=== PATIENT | male | born 1950 | race Caucasian/White ===

== ENCOUNTER 2016-04-19 09:09 | Inpatient (IN) | payer MEDICARE, OTHER ==
[~2016-04-19] VITALS: Ht 200.6 cm; Wt 157.1 kg
--- NOTE | ~2016-04-19 | PR ---
[place], [place] PROGRESS NOTE NAME: CHICA GAXIOLA UNIT #: [id number] ROOM: 427 DOCTOR: NISHA DOHERTY MD BIRTHDATE: [birth year] DOS: 04/24/2016 REASON FOR VISIT: Atrial fibrillation and recurrent falls. HISTORY OF PRESENT ILLNESS: The patient is feeling better. Denies any chest pain or shortness of breath. No palpitations, no dizziness. Edema is much better. No further syncopal attacks. He is anticipating discharge home today. REVIEW OF SYSTEMS: Review of the 8 systems negative except as mentioned above. RHYTHM STRIPS: Rhythm strips, the patient in sinus rhythm. PHYSICAL EXAMINATION: VITAL SIGNS: Blood pressure 145/52, pulse 76, respiratory rate 16. GENERAL: Alert, comfortable, in no acute distress. HEENT: Pupils are round and equal. No jaundice. Tongue was moist and pharynx was clear. NECK: Supple, no distended neck veins, no carotid bruit. Thyroid not palpable. CHEST: Symmetrical, nontender. LUNGS: Few scattered rhonchi. Good air entry bilaterally. HEART: Regular rhythm, no S3, no palpable thrills. ABDOMEN: Obese, nontender. Bowel sounds normal. EXTREMITIES: Showed 1+ edema. Distal pulses are palpable. SKIN: Warm and dry. No cyanosis, no clubbing. NEUROLOGIC: The patient is alert, oriented. No focal neurologic deficit. DIAGNOSTIC TESTS: Review of the diagnostic test, his labs reviewed. Hemoglobin 8.7. IMPRESSION: 1. Recurrent falls, no evidence of significant bradycardia or tachycardia and blood pressure stable. 2. Paroxysmal atrial fibrillation. 3. Chronic anemia. 4. Hypertension. 5. Morbid obesity. 6. Diabetes, type 2. RECOMMENDATIONS: 1. Continue current medications. 2. He can be discharged home from the cardiac standpoint. We will arrange for outpatient 30-day event monitor. 3. Risk factor modification was discussed. 4. He will follow up visit with our Cardiology Clinic at the [facility]. [place], [place] PROGRESS NOTE NAME: MARIA ELENA GAXIOLAT UNIT #: [id number] ROOM: 427 DOCTOR: NISHA DOHETRY MD BIRTHDATE: [birth year] NISHA DOHERTY MD CM:MALENA [id number] NISHA DOHERTY MD 04/25/16 0720 interface
--- NOTE | ~2016-04-19 | PR ---
[place], [place] PROGRESS NOTE NAME: CHICA GAXIOLA UNIT #: [id number] ROOM: 427 DOCTOR: NISHA DOHERTY MD BIRTHDATE: [birth year] DOS: 04/22/2016 CARDIOLOGY FOLLOWUP VISIT NOTE REASON FOR VISIT: The patient with atrial fibrillation and syncope. HISTORY OF PRESENT ILLNESS: The patient is feeling better. Denies any chest pain. Breathing is much better, still has some edema. No dizziness, no palpitation, no PND, no orthopnea. He is lying in his bedside chair. No cough, no fever or chills. REVIEW OF SYSTEMS: Review of the 8 systems negative except as mentioned above. RHYTHM STRIPS: The patient with atrial fibrillation. PHYSICAL EXAMINATION: VITAL SIGNS: Blood pressure 162/62, pulse 66, respiratory rate 20. GENERAL: Alert, comfortable, in no acute distress. HEENT: Pupils are round and equal. No jaundice. NECK: Supple, no distended neck veins, no carotid bruit. CHEST: Nontender. LUNGS: Few rhonchi, slightly diminished at bases. HEART: Slightly irregular, grade 1/6 systolic murmur. ABDOMEN: Obese, nontender. EXTREMITIES: Showed 1-2+ edema. SKIN: Warm and dry. No cyanosis, no clubbing. REVIEW OF DIAGNOSTIC TEST: His hemoglobin is 8.7. BMP unremarkable. IMPRESSION: 1. Chronic atrial fibrillation. 2. Hypertension. 3. Syncope versus recurrent falls. 4. Anemia. 5. Morbid obesity. 6. Tobacco smoking. 7. Chronic obstructive pulmonary disease. RECOMMENDATIONS: 1. His current heart rates are stable, give one dose of Norvasc 5 mg today for his blood pressure. 2. Continue to monitor his heart rates and blood pressures, also his hemoglobins. 3. The blood pressure is persistently high, increase valsartan to 320 mg. 4. If he is stable, possibly he can be discharged home in the next 24-48 hours. 5. We will arrange for outpatient 30-day event monitor upon his discharge. [place], [place] PROGRESS NOTE NAME: LADYCHICA GOODE UNIT #: [id number] ROOM: 427 DOCTOR: NISHA DOHERTY MD BIRTHDATE: [birth year] NISHA DOHERTY MD CM:PNTRANS [id number] [phone] NISHA DOHERTY MD 04/23/165 interface
--- NOTE | ~2016-04-19 | PR ---
[place], [place] PROGRESS NOTE NAME: CHICA GAXIOLA UNIT #: [id number] ROOM: 427 DOCTOR: NISHA DOHERTY MD BIRTHDATE: [birth year] DOS: 04/23/2016 REASON FOR VISIT: Atrial fibrillation and frequent falls and CHF. HISTORY OF PRESENT ILLNESS: The patient is feeling better. Denies any dizziness or palpitations. No orthopnea. Edema is much better. No cough or fever. REVIEW OF SYSTEMS: Review of the 8 systems negative except as mentioned above. RHYTHM STRIPS: The patient was in sinus rhythm. PHYSICAL EXAMINATION: VITAL SIGNS: Blood pressure 138/62, pulse was 69, respiratory rate was 20. GENERAL: Alert, comfort, in no acute distress. He was sitting in the chair at bedside. HEENT: Pupils are round. No jaundice. Tongue was moist and pharynx was clear. NECK: Supple, no distended neck veins, no carotid bruit. CHEST: Symmetrical, nontender. LUNGS: Fair air entry bilaterally, diminished at the bases. ABDOMEN: Obese, nontender. Bowel sounds normal. EXTREMITIES: Showed trace to 1+ edema. Distal pulses are palpable. SKIN: Warm and dry. No cyanosis, no clubbing. NEUROLOGIC: The patient was alert, oriented. No focal neurologic deficit. RECTAL: Deferred. REVIEW OF THE DIAGNOSTIC TESTS: Labs reviewed as available. IMPRESSION: 1. Frequent falls, so far no significant vernell or tachycardia. 2. Paroxysmal atrial fibrillation. 3. Hypertension, stable. 4. Anemia. 5. Morbid obesity. 6. Diabetes. 7. Chronic diastolic heart failure. RECOMMENDATIONS: 1. Continue current medications. 2. He can be discharged home tomorrow. 3. We will arrange for outpatient 30-day event monitor at our office after discharge and also consider implantable loop recorder based on his symptoms. 4. Currently, there is no family at bedside. 5. Aggressive risk factor modification for diet, walking and weight loss discussed. [place], [place] PROGRESS NOTE NAME: CHICA GAXIOLA UNIT #: [id number] ROOM: 427 DOCTOR: NISHA DOHERTY MD BIRTHDATE: [birth year] NISHA DOHERTY MD CM:MALENA [id number] NISHA DOHERTY MD 04/24/1603 interface
[2016-04-19 09:09] VITALS: BP 150/50
[~2016-04-19 09:09] MED LIST: '''ZYRTEC PO; 'CLONIDINE0.1 MG PO; ACETAMINOPHEN-H1 TA2 PO; ADVAIR 250/501 EA INH; ALDACTONE25 M1 PO; ALPRAZOLAM0.5 M3 PO; AMLODIPINE BESYL5 MG PO; AMPICILLIN500 MG PO; ASPIR LOW81 MG PO; ASPIRIN CHEWABL81 MG PO; BREO ELLIPTA 11 EACH IH; BREO ELLIPTA 21 EACH IH; CARDIZEM CD240 M1 PO; CATAPRES-TTS 10.1 MG PO; CEFTRIAXON2 GM/50 ML IV; CEFUROXIME AXE250 MG PO; CLARITIN10 MG PO; CLONIDINE HYDR0.1 MG PO; CLONIDINE0.2 MG PO; CONSTULOSE10 GM/151 PO; COUMADIN4 M2 PO; COUMADIN5 M2 PO; COZAAR100 MG PO; DIOVAN160 M2 PO; DOXYCYCLINE100 M3 PO; DULCOLAX10 M1 RC; ELIQUIS5 M1 PO; ESOMEPRAZOLE MA40 M1 PO; FLEET ADULT ENEM1 EA R; FLEET ENEMA 13133 ML RC; FLEET ENEMA R; FLONASE ALLERG9.9 ML NAS; GABAPENTIN400 MG PO; GABAPENTIN800 MG PO; GLUTOSE 1515 GM PO; HUMALOG100 U/ML SC; HYDROCODONE BIT1 T11 PO; HYDROCODONE BIT1 T28 PO; INCRUSE EL62.5 MCG/A IH; INSULIN GLARGINE SC; INSULIN SYRING1 EAC1 MC; K-TAB20 MEQ PO; LACTULOSE10 GM/153 PO; LANTUS100 U/ML SC; LANTUS100 U/ML SQ; LASIX40 MG PO; LASIX80 MG PO; MACROBID100 M1 PO; MEDROL DOSEPAK4 MG PO; MELATONIN10 M2 PO; MICONAZOLE 72% TP; MILK OF MA400 MG/5 M PO; MILK OF MAGNESIA PO; MONTELUKAST SOD10 MG PO; MS CONTIN30 MG PO; NEXIUM40 MG PO; NORCO 7.5-3251 EACH PO; NOVOLOG10 ML SC; NYSTATIN60 GM TP; OMEPRAZOLE D/R20 MG PO; OPANA ER30 M1 PO; PERCOCET 325 MG1 TA6 PO; POTASSIUM CHLO20 ME3 PO; RANITIDINE HCL150 M1 PO; SINGULAIR10 M1 PO; SPIRIVA -- 3018 MCG INH; SPIRIVA18 MCG PO; SPIRONOLACTONE25 MG PO; TEST STRIPS1 EACH DIAG; THEO-24400 MG PO; THEOPHYLLINE400 MG PO; TOPROL XL50 M1 PO; TYLENOL325 M1 PO; VENTOLIN 02.5 MG/3 M INH; WARFARIN SODIUM6 MG PO; XANAX1 MG PO; [UNRECOGNIZED DRUG - OTHER] PO
[2016-04-19 09:54] LABS: BASO % 0.4 % (0.0-1.0); EOS # 0.2 10*3/uL (0.0-0.4); EOS % 2.9 % (1.0-4.0); HEMOGLOBIN 9.5 g/dl (14.0-18.0); IG # 0.1 10*3/uL (0.0-0.1); LYMPH # 0.8 10*3/uL (1.3-4.4); LYMPH % 10.1 % (27.0-41.0); MEAN CELL VOLUME 85.6 fl (80.0-94.0); MEAN CORPUSCULAR HGB 26.2 pg (27.0-31.0); MEAN CORPUSCULAR HGB CONC 30.6 g/dl (33.0-37.0); MEAN PLATELET VOLUME 10.6 fl (9.6-12.3); MONO # 0.6 10*3/uL (0.1-1.0); MONO % 7.3 % (3.0-9.0); NEUT # 5.9 10*3/uL (2.3-7.9); NEUT % 78.5 % (47.0-73.0); PLATELET COUNT AUTOMATED 317 10*3/uL (130-400); RED BLOOD COUNT 3.62 10*6/uL (4.50-5.90); RED CELL DISTRI WIDTH 17.9 % (0-14.5); WHITE BLOOD COUNT 7.6 10*3/uL (4.8-10.8)
[2016-04-19 10:00] VITALS: BP 148/60
[2016-04-19 10:03] LABS: INTERNATIONAL NORM RATIO 1.1 (2.0-3.5); PROTHROMBIN TIME 11.7 SECONDS (9.0-12.4)
[2016-04-19 10:14] LABS: ALBUMIN 2.6 gm/dl (3.1-4.5); ALKALINE PHOSPHATASE 157 U/L (45-117); BILIRUBIN, TOTAL 0.4 mg/dl (0.2-1.0); BUN 25 mg/dl (7-24); CARBON DIOXIDE 24 mmol/L (21-32); CHLORIDE 108 mmol/L (98-107); EST GLOM FILT AFRICAN AMERICAN > 60 ml/min; GLUCOSE 382 mg/dL (65-99); POTASSIUM 4.3 mmol/L (3.5-5.1); SGOT/AST 40 IU/L (3-35); SGPT/ALT 33 U/L (12-78); SODIUM 143 mmol/L (136-145); TOTAL PROTEIN 6.6 gm/dL (6.4-8.2)
[2016-04-19 10:23] LABS: TROPONIN I < 0.015 ng/ml (<0.5)
[2016-04-19 10:47] LABS: BILIRUBIN NEGATIVE (NEGATIVE); BLOOD NEGATIVE (NEGATIVE); CLARITY CLEAR (CLEAR); COLOR YELLOW (YELLOW); GLUCOSE 3+ (NEGATIVE); KETONE NEGATIVE (NEGATIVE); LEUKO ESTERASE NEGATIVE (NEGATIVE); NITRITE NEGATIVE (NEGATIVE); PH 5.5 (5.0-9.0); PROTEIN TRACE (NEGATIVE); UROBILINOGEN 0.2 E.U./dl (0.2-1.0)
[2016-04-19 11:00] LABS: BACTERIA 1+; URINE REFLEX COMMENT YES (NO); YEAST 1+
[2016-04-19 11:50] LABS: LA>2 REFLEX 2 HR DRAW NOW
[2016-04-19 12:34] VITALS: BP 144/62
[2016-04-19] MEDS ORDERED: AMITRIPTYLINE100 M1 PO (15:18)
[2016-04-19] MEDS ORDERED: NYSTOP100000 U/G T (15:18)
[2016-04-19] MEDS ORDERED: VALSARTAN160 MG PO (15:19)
[2016-04-19 16:00] VITALS: BP 163/70
[2016-04-19 18:56] LABS: CKMB 1.2 ng/ml (0.5-3.6); CPK 214 U/L (39-308)
[2016-04-19 19:04] LABS: TROPONIN I < 0.015 ng/ml (<0.5)
[2016-04-19 20:00] VITALS: BP 162/53
[2016-04-20] VITALS: BP 148/63
[2016-04-20 00:44] LABS: CKMB 1.2 ng/ml (0.5-3.6); TROPONIN I 0.019 ng/ml (<0.5)
[2016-04-20 06:34] LABS: BUN 14 mg/dl (7-24); CARBON DIOXIDE 29 mmol/L (21-32); CHLORIDE 106 mmol/L (98-107); EST GLOM FILT AFRICAN AMERICAN > 60 ml/min; GLUCOSE 321 mg/dL (65-99); MAGNESIUM 1.7 mg/dL (1.5-2.1); POTASSIUM 3.5 mmol/L (3.5-5.1); SODIUM 142 mmol/L (136-145)
[2016-04-20 06:38] LABS: BASO % 0.4 % (0.0-1.0); EOS # 0.2 10*3/uL (0.0-0.4); EOS % 4.8 % (1.0-4.0); HEMATOCRIT 28.7 % (42.0-52.0); HEMOGLOBIN 8.9 g/dl (14.0-18.0); LYMPH % 19.2 % (27.0-41.0); MEAN CELL VOLUME 84.9 fl (80.0-94.0); MEAN CORPUSCULAR HGB 26.3 pg (27.0-31.0); MEAN PLATELET VOLUME 10.9 fl (9.6-12.3); MONO # 0.4 10*3/uL (0.1-1.0); MONO % 8.1 % (3.0-9.0); NEUT # 3.3 10*3/uL (2.3-7.9); NEUT % 67.3 % (47.0-73.0); PLATELET COUNT AUTOMATED 259 10*3/uL (130-400); RED BLOOD COUNT 3.38 10*6/uL (4.50-5.90); RED CELL DISTRI WIDTH 17.6 % (0-14.5)
[2016-04-20 06:39] LABS: CPK 140 U/L (39-308)
[2016-04-20 06:44] LABS: TROPONIN I < 0.015 ng/ml (<0.5)
[2016-04-20 08:00] VITALS: BP 158/86; BP 170/90
[2016-04-20 12:00] VITALS: BP 143/93
[2016-04-20 16:00] VITALS: BP 132/96
[2016-04-20 20:00] VITALS: BP 101/53
[2016-04-21] VITALS: BP 128/50; BP 139/38
[2016-04-21 06:33] LABS: BASO % 0.4 % (0.0-1.0); EOS # 0.3 10*3/uL (0.0-0.4); EOS % 5.2 % (1.0-4.0); HEMATOCRIT 26.7 % (42.0-52.0); HEMOGLOBIN 8.4 g/dl (14.0-18.0); LYMPH % 19.7 % (27.0-41.0); MEAN CELL VOLUME 84.2 fl (80.0-94.0); MEAN CORPUSCULAR HGB 26.5 pg (27.0-31.0); MEAN CORPUSCULAR HGB CONC 31.5 g/dl (33.0-37.0); MEAN PLATELET VOLUME 10.9 fl (9.6-12.3); MONO # 0.5 10*3/uL (0.1-1.0); MONO % 9.4 % (3.0-9.0); NEUT # 3.4 10*3/uL (2.3-7.9); NEUT % 65.1 % (47.0-73.0); PLATELET COUNT AUTOMATED 251 10*3/uL (130-400); RED BLOOD COUNT 3.17 10*6/uL (4.50-5.90); RED CELL DISTRI WIDTH 17.4 % (0-14.5); WHITE BLOOD COUNT 5.2 10*3/uL (4.8-10.8)
[2016-04-21 08:00] VITALS: BP 136/64
[2016-04-21 11:17] LABS: URINE AMPHETAMINES < 1000 (1000ng/ml); URINE BARBITURATES < 200 (200ng/ml); URINE COCAINE < 300 (300ng/ml)
[2016-04-21 12:00] VITALS: BP 153/64
[2016-04-21 16:00] VITALS: BP 168/62
[2016-04-21 20:00] VITALS: BP 119/58
[2016-04-22] VITALS: BP 140/50
[2016-04-22 06:46] LABS: BASO % 0.6 % (0.0-1.0); EOS # 0.3 10*3/uL (0.0-0.4); EOS % 6.2 % (1.0-4.0); HEMATOCRIT 28.3 % (42.0-52.0); HEMOGLOBIN 8.7 g/dl (14.0-18.0); LYMPH % 20.1 % (27.0-41.0); MEAN CELL VOLUME 84.2 fl (80.0-94.0); MEAN CORPUSCULAR HGB 25.9 pg (27.0-31.0); MEAN CORPUSCULAR HGB CONC 30.7 g/dl (33.0-37.0); MEAN PLATELET VOLUME 10.5 fl (9.6-12.3); MONO # 0.5 10*3/uL (0.1-1.0); MONO % 9.3 % (3.0-9.0); NEUT # 3.3 10*3/uL (2.3-7.9); NEUT % 63.4 % (47.0-73.0); PLATELET COUNT AUTOMATED 272 10*3/uL (130-400); RED BLOOD COUNT 3.36 10*6/uL (4.50-5.90); RED CELL DISTRI WIDTH 17.2 % (0-14.5); WHITE BLOOD COUNT 5.2 10*3/uL (4.8-10.8)
[2016-04-22 07:02] LABS: BUN 10 mg/dl (7-24); CARBON DIOXIDE 30 mmol/L (21-32); CHLORIDE 104 mmol/L (98-107); EST GLOM FILT AFRICAN AMERICAN > 60 ml/min; GLUCOSE 140 mg/dL (65-99); POTASSIUM 3.6 mmol/L (3.5-5.1); SODIUM 142 mmol/L (136-145)
[2016-04-22 08:00] VITALS: BP 168/60
[2016-04-22 12:00] VITALS: BP 162/62
[2016-04-22 16:00] VITALS: BP 98/40
[2016-04-22 20:00] VITALS: BP 130/72
[2016-04-23] VITALS: BP 159/58
[2016-04-23 08:00] VITALS: BP 138/62
[2016-04-23 12:00] VITALS: BP 147/56
[2016-04-23 16:00] VITALS: BP 132/61
[2016-04-23 20:00] VITALS: BP 151/58
[2016-04-24] VITALS: BP 144/66
[2016-04-24 08:00] VITALS: BP 138/52
[2016-04-24 12:10] VITALS: BP 146/52
[2016-04-24] MEDS ORDERED: KLOR-CON 1010 ME1 PO (14:01)
[2016-04-24] MEDS ORDERED: BUMETANIDE1 MG PO (14:01)
[2016-04-24 16:00] VITALS: BP 133/93
[2016-04-24 20:00] VITALS: BP 156/56
[2016-04-25] VITALS: BP 144/58
[2016-04-25 08:00] VITALS: BP 156/51
== END 2016-04-25 10:29 | disposition home health service (06) | DRG 291 ==
LOC: ED 09:09 → 4E 11:47 → EDHOLD 11:47 → 4E 12:17
PROVIDERS: Family Medicine; Internal Medicine; Nurse Practitioner Family; Student in an Organized Health Care Education/Training Program
DX: I11.0 Hypertensive heart disease with heart failure (principal); E43 Unspecified severe protein-calorie malnutrition; E87.2 Acidosis; E11.40 Type 2 diabetes mellitus with diabetic neuropathy, unspecified; Z79.01 Long term (current) use of anticoagulants; I48.0 Paroxysmal atrial fibrillation; Z68.44 Body mass index [BMI] 60.0-69.9, adult; I50.33 Acute on chronic diastolic (congestive) heart failure; K21.9 Gastro-esophageal reflux disease without esophagitis; D64.9 Anemia, unspecified; R06.82 Tachypnea, not elsewhere classified; J44.9 Chronic obstructive pulmonary disease, unspecified; F41.9 Anxiety disorder, unspecified; G47.30 Sleep apnea, unspecified; G89.29 Other chronic pain; M19.90 Unspecified osteoarthritis, unspecified site; E66.01 Morbid (severe) obesity due to excess calories; R55 Syncope and collapse; F17.200 Nicotine dependence, unspecified, uncomplicated; Z86.718 Personal history of other venous thrombosis and embolism; Z79.4 Long term (current) use of insulin; Z79.899 Other long term (current) drug therapy; Z79.82 Long term (current) use of aspirin; Z88.8 Allergy status to other drugs, medicaments and biological substances; Z88.1 Allergy status to other antibiotic agents; Z98.890 Other specified postprocedural states; Z82.49 Family history of ischemic heart disease and other diseases of the circulatory system; Z83.3 Family history of diabetes mellitus; Z80.9 Family history of malignant neoplasm, unspecified

== ENCOUNTER 2016-04-27 15:41 | Inpatient (IN) | payer MEDICARE, OTHER ==
[~2016-04-27] VITALS: Ht 190.5 cm; Wt 155.2 kg
[2016-04-27] VITALS (7 sets, daily range): BP systolic 106–139; BP diastolic 22–62
[~2016-04-27 15:41] MED LIST changes: +AMITRIPTYLINE100 M1 PO; +BUMETANIDE1 MG PO; +KLOR-CON 1010 ME1 PO; +NYSTOP100000 U/G T; +VALSARTAN160 MG PO
[2016-04-27 16:14] LABS: BASO % 0.3 % (0.0-1.0); EOS # 0.1 10*3/uL (0.0-0.4); EOS % 1.3 % (1.0-4.0); HEMATOCRIT 29.5 % (42.0-52.0); LYMPH # 1.3 10*3/uL (1.3-4.4); LYMPH % 16.7 % (27.0-41.0); MEAN CELL VOLUME 86.3 fl (80.0-94.0); MEAN CORPUSCULAR HGB 26.3 pg (27.0-31.0); MEAN CORPUSCULAR HGB CONC 30.5 g/dl (33.0-37.0); MEAN PLATELET VOLUME 10.8 fl (9.6-12.3); MONO # 0.8 10*3/uL (0.1-1.0); MONO % 9.8 % (3.0-9.0); NEUT # 5.7 10*3/uL (2.3-7.9); NEUT % 71.4 % (47.0-73.0); PLATELET COUNT AUTOMATED 230 10*3/uL (130-400); RED BLOOD COUNT 3.42 10*6/uL (4.50-5.90); RED CELL DISTRI WIDTH 17.3 % (0-14.5); WHITE BLOOD COUNT 7.9 10*3/uL (4.8-10.8)
[2016-04-27 16:22] LABS: INTERNATIONAL NORM RATIO 1.1 (2.0-3.5); PROTHROMBIN TIME 11.6 SECONDS (9.0-12.4)
[2016-04-27 16:32] LABS: ALBUMIN 2.7 gm/dl (3.1-4.5); ALKALINE PHOSPHATASE 123 U/L (45-117); BILIRUBIN, TOTAL 0.3 mg/dl (0.2-1.0); BUN 29 mg/dl (7-24); CARBON DIOXIDE 22 mmol/L (21-32); CHLORIDE 106 mmol/L (98-107); EST GLOM FILT AFRICAN AMERICAN > 60 ml/min; GLUCOSE 106 mg/dL (65-99); MAGNESIUM 1.9 mg/dL (1.5-2.1); POTASSIUM 4.2 mmol/L (3.5-5.1); SGOT/AST 29 IU/L (3-35); SGPT/ALT 24 U/L (12-78); SODIUM 140 mmol/L (136-145); TOTAL PROTEIN 6.8 gm/dL (6.4-8.2)
[2016-04-27 16:34] LABS: TROPONIN I < 0.015 ng/ml (<0.5)
[2016-04-28] VITALS: BP 149/58
[2016-04-28 00:53] LABS: CPK 38 U/L (39-308)
[2016-04-28 00:54] LABS: CKMB < 0.5 ng/ml (0.5-3.6); TROPONIN I < 0.015 ng/ml (<0.5)
[2016-04-28 06:22] LABS: HEMATOCRIT 30.2 % (42.0-52.0); HEMOGLOBIN 9.3 g/dl (14.0-18.0); MEAN CELL VOLUME 84.1 fl (80.0-94.0); MEAN CORPUSCULAR HGB 25.9 pg (27.0-31.0); MEAN CORPUSCULAR HGB CONC 30.8 g/dl (33.0-37.0); PLATELET COUNT AUTOMATED 207 10*3/uL (130-400); RED BLOOD COUNT 3.59 10*6/uL (4.50-5.90); RED CELL DISTRI WIDTH 16.7 % (0-14.5); WHITE BLOOD COUNT 4.8 10*3/uL (4.8-10.8)
[2016-04-28 06:32] LABS: CKMB 0.9 ng/ml (0.5-3.6); CPK 35 U/L (39-308)
[2016-04-28 06:33] LABS: TROPONIN I < 0.015 ng/ml (<0.5)
[2016-04-28 06:57] LABS: BUN 28 mg/dl (7-24); CARBON DIOXIDE 23 mmol/L (21-32); CHLORIDE 103 mmol/L (98-107); EST GLOM FILT AFRICAN AMERICAN > 60 ml/min; GLUCOSE 323 mg/dL (65-99); PHOSPHOROUS 2.9 mg/dL (2.5-4.9); POTASSIUM 4.5 mmol/L (3.5-5.1); SODIUM 137 mmol/L (136-145); THYROID STIM HORMONE (HS) 0.437 uIU/ml (0.358-4.75)
[2016-04-28 07:04] LABS: BILIRUBIN NEGATIVE (NEGATIVE); BLOOD 3+ (NEGATIVE); CLARITY CLEAR (CLEAR); COLOR YELLOW (YELLOW); GLUCOSE 1+ (NEGATIVE); KETONE 1+ (NEGATIVE); LEUKO ESTERASE NEGATIVE (NEGATIVE); NITRITE NEGATIVE (NEGATIVE); PH 5.5 (5.0-9.0); PROTEIN 1+ (NEGATIVE); SPECIFIC GRAVITY 1.025 (1.005-1.030); UROBILINOGEN 0.2 E.U./dl (0.2-1.0)
[2016-04-28 07:11] LABS: HYPOCHROMIA SLIGHT; LYMPHOCYTE # 0.3 10*3/uL (1.3-4.4); MONOCYTE # 0.1 10*3/uL (0.1-1.0); NEUTROPHIL # 4.4 10*3/uL (2.3-7.9); NEUTROPHILS 91 % (47-73); PLATELET SUFFICIENCY NORMAL (NORMAL); ROULEAUX SLIGHT; TARGET CELLS FEW; TOTAL CELLS COUNTED 100 #CELLS
[2016-04-28 07:14] LABS: RBC TNTC rbc/hpf (0-2); URINE REFLEX COMMENT YES (NO)
[2016-04-28 07:16] LABS: BACTERIA TRACE
[2016-04-28 08:00] VITALS: BP 131/81
[2016-04-28 12:00] VITALS: BP 139/56
[2016-04-28 12:04] LABS: CKMB 1.1 ng/ml (0.5-3.6); CPK 37 U/L (39-308)
[2016-04-28 12:07] LABS: TROPONIN I < 0.015 ng/ml (<0.5)
[2016-04-28 16:00] VITALS: BP 109/57
== END 2016-04-28 18:18 | DRG 291 ==
LOC: ED 15:41 → EDHOLD 18:00 → 5E 18:00
PROVIDERS: Student in an Organized Health Care Education/Training Program
DX: I11.0 Hypertensive heart disease with heart failure (principal); J96.01 Acute respiratory failure with hypoxia; E43 Unspecified severe protein-calorie malnutrition; G93.41 Metabolic encephalopathy; Z68.41 Body mass index [BMI] 40.0-44.9, adult; I50.33 Acute on chronic diastolic (congestive) heart failure; K21.9 Gastro-esophageal reflux disease without esophagitis; J44.9 Chronic obstructive pulmonary disease, unspecified; M19.90 Unspecified osteoarthritis, unspecified site; F41.9 Anxiety disorder, unspecified; E11.41 Type 2 diabetes mellitus with diabetic mononeuropathy; D64.9 Anemia, unspecified; M54.9 Dorsalgia, unspecified; G47.30 Sleep apnea, unspecified; E66.01 Morbid (severe) obesity due to excess calories; Z98.890 Other specified postprocedural states; Z87.891 Personal history of nicotine dependence; Z82.49 Family history of ischemic heart disease and other diseases of the circulatory system; Z91.041 Radiographic dye allergy status; Z88.1 Allergy status to other antibiotic agents; Z86.718 Personal history of other venous thrombosis and embolism; Z79.4 Long term (current) use of insulin; Z79.899 Other long term (current) drug therapy